=== PATIENT | male | born 1945 | race Caucasian/White ===

== ENCOUNTER 2024-02-20 11:57 | Emergency (ER) | payer MEDICARE, SELFPAY ==
--- NOTE | ~2024-02-20 | XR_ITS ---
EXAMINATION: XR KNEE, LEFT CLINICAL INFORMATION: Swelling. Pain. COMPARISON: None available. TECHNIQUE: Four views of the left knee. FINDINGS: No fracture. Alignment is anatomic. There is a small suprapatellar joint effusion. There is mild narrowing of the medial compartment. There are degenerative changes of the patellofemoral joint. There are dense vascular calcifications. XR/XR knee LT 4V IMPRESSION: No fracture or dislocation. Small effusion. Mild degenerative disease. Extensive vascular calcification.
--- NOTE | ~2024-02-20 | US_ITS ---
EXAMINATION: US VENOUS ULTRASOUND WITH DOPPLER LOWER EXTREMITY, LEFT CLINICAL INFORMATION: Swelling and pain. DVT. COMPARISON: None available. TECHNIQUE: Ultrasound of the deep veins is performed from the hip to the calf with compression sonography and color and pulse Doppler assessment. Spectral analysis with color-flow imaging is performed. FINDINGS: There appears to be some thrombus and poor compression in the femoral vein proximal to distal. This may be chronic. The caliber of the vein is normal or small. Some color flow is noted. The right common femoral vein appears normal as does the left common femoral vein. Poor compression with some color flow still observed in the left popliteal vein likely chronic. Calf veins were not clearly seen. No fluid collections or popliteal cysts. US/US venous duplex LE LT IMPRESSION: Likely extensive chronic DVT noted.
[2024-02-20 12:09] VITALS: BP 123/64; PULSE 74; PULSE 78; RESP 16; O2SAT 95; O2SAT 96; BMI 30.7
--- NOTE | 2024-02-20 13:04 | ED_ITS ---
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 Patient has been at [facility] for acute rehab and doing physical therapy when he noticed is left leg was painful and he had swelling in his left knee and thigh. He states he fell recently, fell onto his bottom. Did not hit his head or injure his knee at that time. 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 Less than 24 hours after discharge he had another witnessed ?syncopal episode at his apartment building, cannot recall if he was dizzy or had chest pain or shortness of breath at that time. He was again brought to [facility] where they ruled out PE and interrogated his pacemaker which did not show any events. He was discharged to [facility] for rehab. He was off of his coumadin for about 1 week for his pacemaker procedure, INR was subtherapeutic at 1.1 on 02/02 at [place]. Denies chest pain or shortness of breath currently. MD complaint: knee injury Onset (ago): day(s) (1) Injury: Left: knee Type of Injury: unknown Place: SNF Relieving factors: rest Exacerbating factors: movement and palpation Context: fall (at least one week ago) Associated symptoms: swelling Other symptoms: none Related Data Previous Rx's ?Medication ?Instructions ?Recorded oxycodone 5 mg tablet 5 mg PO BID PRN severe pain (scale 02/20/24 score 7-10) #4 tabs Allergies Allergy/AdvReac Type Severity Reaction Status Date / Time shellfish derived Allergy Swelling Verified 02/20/24 12:15 Review of Systems 2 Review of Systems: Yes all other systems are reviewed and are negative [facility] Social History Social History Smoked in Last 30 Days: No Use of substances other than those prescribed or required for medical reasons: No Advance Directives: Yes Advance Directives on File: No Physical Exam 2 Vital Signs: Vital Signs: Last Vital Signs Temp 98.5 F 02/20/24 16:40 Pulse 89 02/20/24 16:40 Resp 16 02/20/24 16:40 BP 135/72 02/20/24 16:40 Pulse Ox 93 02/20/24 16:40 O2 Del Method Room Air 02/20/24 16:40 BMI result Body Mass Index 30.7 Appearance: Alert. Oriented X3. No acute distress. Head: normocephalic, atraumatic. Eyes: Pupils equal, round and reactive to light. Neck: Normal inspection. Neck supple. CVS: Normal heart rate and rhythm. Pulses normal. Respiratory: No respiratory distress. Breath sounds normal. Skin: Skin warm and dry. Normal skin color. Normal skin turgor. No rashes. Extremities: No lower extremity edema. Left knee swollen, nonerythematous, no ecchymosis, tender to palpation around entire circumference of knee joint, most tender medial and lateral to patella, neurovascular status intact distally. Neuro/psych: Oriented X 3. No motor deficit. No sensory deficit. CN II-XII grossly intact. Garbled speech, longstanding due to prior stroke. EMS reported that he is at baseline neuro status. 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 On arrival to the ED, patients vital signs were within normal limits, he was not in any acute distress. CBC showed leukocytosis with WBC of 19. Possibly due to DVT but need to rule out infection. Patient is afebrile, not tachycardic. Incision site from pacemaker placement is clean, dry, intact with steri-strip in place, not erythematous, no drainage. Patient denies chest pain or shortness of breath. Will obtain urinalysis. On exam there is unilateral swelling of left knee, no ecchymossis or erythema, ROM is painful, and joint is tender to palpation, especially around the patella. Duplex ultrasound of left leg obtained due to concern for DVT. Ultrasound reviewed, showing chronic DVT in the left leg. This was discussed with Dr. Jimenez from heme/Onc, patient is to continue the Coumadin. No further management at this time. Differential Diagnosis Differential Diagnoses: The differential diagnosis associated with the presentation includes DVT, knee dislocation, soft tissue injury of right knee, septic joint Admission/Observation Consideration of admission/observation: Escalation of care including admission/observation considered Consult Healthcare Provider Management of the patient was discussed with: Stabilizing Machine Operator Dr. Camp Lab Data MDM Lab Attestation statement: I reviewed the patient's lab results. Leukocytosis, supratherapeutic INR 02/20/24 13:57 02/20/24 14:59 Labs: Lab Results 02/20/24 02/20/24 02/20/24 Range/Units 13:57 14:30 14:59 WBC 19.0 H (4.8-10.8) X10*3/uL RBC 5.57 (4.60-5.80) X10*6/uL Hgb 15.5 (14.0-18.0) g/dl Hct 47.2 (42.0-52.0) % MCV 84.7 (80.0-98.0) fL MCH 27.8 (27.0-33.0) pg MCHC 32.8 (31.0-36.0) g/dl RDW 14.8 (11.0-16.0) % Plt Count 346 (160-400) X10*3/uL MPV 9.4 (9.4-12.4) fL Immature Gran % (Auto) 0.6 H (0.0-0.4) % Neut % (Auto) 86.4 H (45-73) % Lymph % (Auto) 4.2 L (20-40) % [place] % (Auto) 7.9 (2-11) % Eos % (Auto) 0.4 (0-4) % Baso % (Auto) 0.5 (0-2) % Lymph # (Auto) 0.8 L (1.2-4.9) X10*3/uL [place] # (Auto) 1.5 H (0.1-1.2) X10*3/uL Eos # (Auto) 0.1 (0.0-0.4) X10*3/uL Baso # (Auto) 0.1 (0.0-0.2) X10*3/uL Abs Immat Gran (auto) 0.12 H (0.00-0.03) X10*3/uL Absolute Neuts (auto) 16.4 H (2.0-8.3) x10*3/uL Absolute Nucleated RBC 0.000 (0.0-0.012) X10*3/uL Nucleated RBC % (auto) 0.0 (0.0-0.2) /100WBC PT 41.6 H (11.1-13.3) SEC INR 3.4 H (0.9-1.1) APTT 41.6 H (26.0-36.8) SEC Sodium 137 (135-145) mmol/L Potassium 4.3 (3.3-5.1) mmol/L Chloride 103 (96-108) mmol/L Carbon Dioxide 25 (22-29) mmol/L Anion Gap 13 (12-20) BUN 24 H (9-16) mg/dL Creatinine 1.05 (0.5-1.4) mg/dL Estim Creat Clear Calc 64.6 Estimated GFR > 60 Random Glucose 93 (60-115) mg/dL Calcium 10.1 (8.4-10.2) mg/dL Magnesium 2.1 (1.6-2.6) mg/dL Total Bilirubin 0.5 (0.0-1.0) mg/dL Direct Bilirubin 0.2 (0.0-0.5) mg/dL AST 23 (5-37) U/L ALT 31 (0-40) U/L Alkaline Phosphatase 72 (39-117) U/L Total Protein 8.3 H (6.5-8.0) g/dL Albumin 4.1 (3.5-5.0) g/dL Urine Color Urine Appearance Urine pH (5.0-9.0) Ur Specific [place] (1.005-1.025) Urine Protein (Neg-Trace) mg/dL Urine Glucose (UA) (Negative) mg/dL Urine Ketones (Negative) mg/dL Urine Blood (Negative) Urine Nitrite (Negative) Ur Leukocyte Esterase (Negative) 02/20/24 Range/Units 15:50 WBC (4.8-10.8) X10*3/uL RBC (4.60-5.80) X10*6/uL Hgb (14.0-18.0) g/dl Hct (42.0-52.0) % MCV (80.0-98.0) fL MCH (27.0-33.0) pg MCHC (31.0-36.0) g/dl RDW (11.0-16.0) % Plt Count (160-400) X10*3/uL MPV (9.4-12.4) fL Immature Gran % (Auto) (0.0-0.4) % Neut % (Auto) (45-73) % Lymph % (Auto) (20-40) % [place] % (Auto) (2-11) % Eos % (Auto) (0-4) % Baso % (Auto) (0-2) % Lymph # (Auto) (1.2-4.9) X10*3/uL [place] # (Auto) (0.1-1.2) X10*3/uL Eos # (Auto) (0.0-0.4) X10*3/uL Baso # (Auto) (0.0-0.2) X10*3/uL Abs Immat Gran (auto) (0.00-0.03) X10*3/uL Absolute Neuts (auto) (2.0-8.3) x10*3/uL Absolute Nucleated RBC (0.0-0.012) X10*3/uL Nucleated RBC % (auto) (0.0-0.2) /100WBC PT (11.1-13.3) SEC INR (0.9-1.1) APTT (26.0-36.8) SEC Sodium (135-145) mmol/L Potassium (3.3-5.1) mmol/L Chloride (96-108) mmol/L Carbon Dioxide (22-29) mmol/L Anion Gap (12-20) BUN (9-16) mg/dL Creatinine (0.5-1.4) mg/dL Estim Creat Clear Calc Estimated GFR Random Glucose (60-115) mg/dL Calcium (8.4-10.2) mg/dL Magnesium (1.6-2.6) mg/dL Total Bilirubin (0.0-1.0) mg/dL Direct Bilirubin (0.0-0.5) mg/dL AST (5-37) U/L ALT (0-40) U/L Alkaline Phosphatase (39-117) U/L Total Protein (6.5-8.0) g/dL Albumin (3.5-5.0) g/dL Urine Color Yellow Urine Appearance Clear Urine pH 6.0 (5.0-9.0) Ur Specific [place] 1.020 (1.005-1.025) Urine Protein Trace (Neg-Trace) mg/dL Urine Glucose (UA) Negative (Negative) mg/dL Urine Ketones Trace (Negative) mg/dL Urine Blood Moderate (2+) H (Negative) Urine Nitrite Negative (Negative) Ur Leukocyte Esterase Small (1+) H (Negative) Independent Interpretation I performed an independent interpretation of an: Plain X-Ray and Ultrasound Interpretation: xr knee without acute fx or dislocation extensive clot on u/s agree w/ radiology read Radiology Impression Discussion of test interpretation with radiology: I have reviewed the radiologist's reading. Radiologist Impression: EXAMINATION: XR KNEE, LEFT CLINICAL INFORMATION: Swelling. Pain. COMPARISON: None available. TECHNIQUE: Four views of the left knee. FINDINGS: No fracture. Alignment is anatomic. There is a small suprapatellar joint effusion. There is mild narrowing of the medial compartment. There are degenerative changes of the patellofemoral joint. There are dense vascular calcifications. XR/XR knee LT 4V IMPRESSION: No fracture or dislocation. Small effusion. Mild degenerative disease. Extensive vascular calcification. EXAMINATION: US VENOUS ULTRASOUND WITH DOPPLER LOWER EXTREMITY, LEFT CLINICAL INFORMATION: Swelling and pain. DVT. COMPARISON: None available. TECHNIQUE: Ultrasound of the deep veins is performed from the hip to the calf with compression sonography and color and pulse Doppler assessment. Spectral analysis with color-flow imaging is performed. FINDINGS: There appears to be some thrombus and poor compression in the femoral vein proximal to distal. This may be chronic. The caliber of the vein is normal or small. Some color flow is noted. The right common femoral vein appears normal as does the left common femoral vein. Poor compression with some color flow still observed in the left popliteal vein likely chronic. Calf veins were not clearly seen. No fluid collections or popliteal cysts. US/US venous duplex LE LT IMPRESSION: Likely extensive chronic DVT noted. Independent Historian Clinical information obtained from an independent historian. History obtained from or confirmed by: EMS External Record Review External record reviewed: Office record, Outpatient record, Prior outpatient labs, Prior outpatient radiology, Primary care record and Outside ED record Records reviewed from [facility] Prescription Management I considered prescription management with: Pain Medication and Antibiotic Chronic Conditions Patient?s care impacted by: Other (cva, protein c ) Discharge Plan Discharge Clinical Impression: Chronic deep vein thrombosis (DVT) Qualifiers: DVT location: lower extremity Affected thrombotic vein of extremity: u nspecified vein of extremity Laterality: left Qualified Code(s): I82.502 - Chronic embolism and thrombosis of unspecified deep veins of left lower extremity Leukocytosis Qualifiers: Leukocytosis type: unspecified Qualified Code(s): D72.829 - Elevated white blood cell count, unspecified Patient Disposition: Still a Patient Instructions: Deep Vein Thrombosis (ED) Additional Instructions: Your INR today was 3.4. Continue your Coumadin. Your white blood cell count today was 19,000. There was no evidence of infection and your vital signs were normal. Your pacemaker site does not look infected Recommend repeating your blood count tomorrow to ensure improving white blood cell counts. If you develop new or worsening symptoms call 911 or come back to the ER for further evaluation. EXAMINATION: US VENOUS ULTRASOUND WITH DOPPLER LOWER EXTREMITY, LEFT CLINICAL INFORMATION: Swelling and pain. DVT. COMPARISON: None available. TECHNIQUE: Ultrasound of the deep veins is performed from the hip to the calf with compression sonography and color and pulse Doppler assessment. Spectral analysis with color-flow imaging is performed. FINDINGS: There appears to be some thrombus and poor compression in the femoral vein proximal to distal. This may be chronic. The caliber of the vein is normal or small. Some color flow is noted. The right common femoral vein appears normal as does the left common femoral vein. Poor compression with some color flow still observed in the left popliteal vein likely chronic. Calf veins were not clearly seen. No fluid collections or popliteal cysts. US/US venous duplex LE LT IMPRESSION: Likely extensive chronic DVT noted. Prescriptions: New oxycodone 5 mg tablet 5 mg PO BID PRN (Reason: severe pain (scale score 7-10)) Qty: 4 0RF Rx Instructions: Partial Fill upon patient request. Referrals: [facility] [facility] Orthopedic Surgeons [Provider Group] (XR/XR knee LT 4V IMPRESSION: No fracture or dislocation. Small effusion. Mild degenerative disease. Extensive vascular calcification) Smith Ramon MD [Primary Care Provider] - Print Language: Latvian
[2024-02-20 14:00] LABS: MANUAL DIFF FLAG NO
[2024-02-20 14:05] LABS: Basophils Absolute Auto 0.1 X10*3/uL (0.0-0.2); Basophils Percent Auto 0.5 % (0-2); Eosinophils Absolute Auto 0.1 X10*3/uL (0.0-0.4); Eosinophils Percent Auto 0.4 % (0-4); Hematocrit 47.2 % (42.0-52.0); Hemoglobin 15.5 g/dl (14.0-18.0); Imm Gran Abs Auto 0.12 X10*3/uL (0.00-0.03); Imm Gran Pct Auto 0.6 % (0.0-0.4); Lymphocytes Absolute Auto 0.8 X10*3/uL (1.2-4.9); Lymphocytes Percent Auto 4.2 % (20-40); Mean Corpuscular HGB Conc 32.8 g/dl (31.0-36.0); Mean Corpuscular Hemoglobin 27.8 pg (27.0-33.0); Mean Corpuscular Volume 84.7 fL (80.0-98.0); Mean Platelet Volume 9.4 fL (9.4-12.4); Monocytes Absolute Auto 1.5 X10*3/uL (0.1-1.2); Monocytes Percent Auto 7.9 % (2-11); Neutrophils Absolute Auto 16.4 x10*3/uL (2.0-8.3); Neutrophils Percent Auto 86.4 % (45-73); Platelet Count 346 X10*3/uL (160-400); Red Blood Count 5.57 X10*6/uL (4.60-5.80); Red Cell Distribution Width 14.8 % (11.0-16.0)
[2024-02-20 14:08] VITALS: BP 127/68; PULSE 79; RESP 20; TEMP 36.6; O2SAT 93
[2024-02-20 14:45] LABS: INTERNATIONAL NORM RATIO 3.4 (0.9-1.1); Prothrombin Time 41.6 SEC (11.1-13.3)
[2024-02-20 14:48] LABS: Partial Thromboplastin Time 41.6 SEC (26.0-36.8)
[2024-02-20 15:25] LABS: Alanine Aminotransferase 31 U/L (0-40); Albumin Level 4.1 g/dL (3.5-5.0); Alkaline Phosphatase 72 U/L (39-117); Anion Gap 13 (12-20); Aspartate Amino Transferase 23 U/L (5-37); Bilirubin Direct 0.2 mg/dL (0.0-0.5); Bilirubin Total 0.5 mg/dL (0.0-1.0); Blood Urea Nitrogen 24 mg/dL (9-16); Calcium 10.1 mg/dL (8.4-10.2); Carbon Dioxide 25 mmol/L (22-29); Chloride 103 mmol/L (96-108); Creatinine Clr Calc Pharmacy 64.6; Estimated Glomerular Filt Rate > 60; Glucose Random 93 mg/dL (60-115); Magnesium 2.1 mg/dL (1.6-2.6); Potassium 4.3 mmol/L (3.3-5.1); Sodium 137 mmol/L (135-145); Total Protein 8.3 g/dL (6.5-8.0)
[2024-02-20 16:06] LABS: Appearance Urine Clear; Color Urine Yellow; Glucose Urine UA Negative (Negative); Leukocyte Esterase Urine Small (1+) (Negative); Nitrite Urine Negative (Negative); UMIC TRIGGER UACC YES; Urine Blood Moderate (2+) (Negative); Urine Ketones Trace mg/dL (Negative); Urine Protein Trace mg/dL (Neg-Trace)
[2024-02-20] MEDS: oxyCODONE HCl Immed Release 5 MG TABLET PO (16:23)
[2024-02-20 16:40] VITALS: BP 135/72; PULSE 89; RESP 16; TEMP 36.9; O2SAT 93
[2024-02-20 17:06] LABS: Basophils Absolute Auto 0.1 X10*3/uL (0.0-0.2); Basophils Percent Auto 0.4 % (0-2); Eosinophils Absolute Auto 0.1 X10*3/uL (0.0-0.4); Eosinophils Percent Auto 0.4 % (0-4); Hematocrit 45.1 % (42.0-52.0); Hemoglobin 15.1 g/dl (14.0-18.0); Imm Gran Abs Auto 0.09 X10*3/uL (0.00-0.03); Imm Gran Pct Auto 0.6 % (0.0-0.4); Lymphocytes Absolute Auto 1.3 X10*3/uL (1.2-4.9); Lymphocytes Percent Auto 8.2 % (20-40); Mean Corpuscular HGB Conc 33.5 g/dl (31.0-36.0); Mean Corpuscular Hemoglobin 28.1 pg (27.0-33.0); Mean Platelet Volume 9.2 fL (9.4-12.4); Monocytes Absolute Auto 1.4 X10*3/uL (0.1-1.2); Monocytes Percent Auto 8.4 % (2-11); Neutrophils Absolute Auto 13.3 x10*3/uL (2.0-8.3); Platelet Count 278 X10*3/uL (160-400); Red Blood Count 5.37 X10*6/uL (4.60-5.80); Red Cell Distribution Width 14.9 % (11.0-16.0); White Blood Count 16.2 X10*3/uL (4.8-10.8)
[2024-02-20 17:07] LABS: MANUAL DIFF FLAG NO
--- NOTE | 2024-02-20 17:43 | PC.NURSE ---
report given to Donovan garcia. pt awaiting transport back to SNF by EMS
[2024-02-20 20:08] VITALS: BP 124/74; PULSE 79; RESP 16; TEMP 36.8; O2SAT 93
[2024-02-20 21:04] VITALS: BP 124/74; PULSE 79; RESP 16; TEMP 36.8; O2SAT 93
[2024-02-20 21:18] LABS: Bacteria Urine None Seen (None Seen); Hyaline Casts Urine 0-2 /LPF (0-2); RBC Urine >20 /HPF (0-2); Squamous Epithelial Cell Urine 0-2 /HPF (0-2); UACC Culture Trigger YES
== END 2024-02-20 21:05 | disposition home or self-care (01) ==
PROVIDERS: Physician Assistant; Emergency Provider Emergency Medicine; PCP Family Medicine Geriatric Medicine
DX: I82.502 Chronic embolism and thrombosis of unspecified deep veins of left lower extremity (principal); D72.829 Elevated white blood cell count, unspecified; I10 Essential (primary) hypertension; Z86.73 Personal history of transient ischemic attack (TIA), and cerebral infarction without residual deficits; Z79.01 Long term (current) use of anticoagulants; Z95.0 Presence of cardiac pacemaker
CPT/HCPCS: 36415; 73564; 80048; 80076; 81001; 83735; 85025; 85610; 85730; 87086; 93971; 99284

== ENCOUNTER 2024-02-25 11:36 | Emergency (ER) | payer MEDICARE, SELFPAY ==
--- NOTE | 2024-02-25 | ECG_ITS ---
Test Reason : FALL Blood Pressure : / mmHG Vent. Rate : 080 BPM Atrial Rate : 080 BPM P-R Int : 172 ms QRS Dur : 180 ms QT Int : 440 ms P-R-T Axes : -26 -87 067 degrees QTc Int : 507 ms Atrial-sensed ventricular-paced rhythm Abnormal ECG No previous ECGs available Referred By: Generic ED Physician Electronically Signed By:Marvin Kulkarni
[2024-02-25 11:48] VITALS: BP 122/88; BP 124/65; PULSE 75; PULSE 81; RESP 16; TEMP 36.4; O2SAT 86; O2SAT 91; BMI 30.1
[2024-02-25 12:23] VITALS: BP 131/69; PULSE 79; RESP 18; TEMP 36.6; O2SAT 91
[2024-02-25 12:26] VITALS: BP 131/69; PULSE 75; RESP 18; O2SAT 87; O2SAT 92
--- NOTE | 2024-02-25 12:27 | PC.NURSE ---
pt noted to be at 87% on RA - pt placed on 2L via NC - now resting at 92%. no sob/wob noted. pt positioned upright to promote patent airway. respirations even/unlabored. lungs CTA. labs obtained/sent to lab by tech. pt waiting to be seen by ED provider. plan of care ongoing.
[2024-02-25 12:32] LABS: MANUAL DIFF FLAG NO
[2024-02-25 12:33] LABS: Basophils Absolute Auto 0.1 X10*3/uL (0.0-0.2); Basophils Percent Auto 0.5 % (0-2); Eosinophils Absolute Auto 0.2 X10*3/uL (0.0-0.4); Eosinophils Percent Auto 1.3 % (0-4); Hematocrit 40.4 % (42.0-52.0); Hemoglobin 13.7 g/dl (14.0-18.0); Imm Gran Abs Auto 0.06 X10*3/uL (0.00-0.03); Imm Gran Pct Auto 0.5 % (0.0-0.4); Lymphocytes Absolute Auto 0.9 X10*3/uL (1.2-4.9); Lymphocytes Percent Auto 7.2 % (20-40); Mean Corpuscular HGB Conc 33.9 g/dl (31.0-36.0); Mean Corpuscular Hemoglobin 28.2 pg (27.0-33.0); Mean Corpuscular Volume 83.1 fL (80.0-98.0); Monocytes Absolute Auto 0.9 X10*3/uL (0.1-1.2); Monocytes Percent Auto 7.7 % (2-11); Neutrophils Absolute Auto 9.7 x10*3/uL (2.0-8.3); Neutrophils Percent Auto 82.8 % (45-73); Platelet Count 316 X10*3/uL (160-400); Red Blood Count 4.86 X10*6/uL (4.60-5.80); Red Cell Distribution Width 14.5 % (11.0-16.0); White Blood Count 11.8 X10*3/uL (4.8-10.8)
[2024-02-25 12:40] LABS: INTERNATIONAL NORM RATIO 3.3 (0.9-1.1); Prothrombin Time 40.6 SEC (11.1-13.3)
[2024-02-25 12:43] LABS: Partial Thromboplastin Time 38.7 SEC (26.0-36.8)
[2024-02-25 12:54] LABS: Alanine Aminotransferase 32 U/L (0-40); Albumin Level 3.5 g/dL (3.5-5.0); Alkaline Phosphatase 68 U/L (39-117); Anion Gap 12 (12-20); Aspartate Amino Transferase 23 U/L (5-37); Bilirubin Total 0.4 mg/dL (0.0-1.0); Blood Urea Nitrogen 17 mg/dL (9-16); Calcium 9.6 mg/dL (8.4-10.2); Carbon Dioxide 25 mmol/L (22-29); Chloride 105 mmol/L (96-108); Creatinine Clr Calc Pharmacy 66.6; Estimated Glomerular Filt Rate > 60; Glucose Random 103 mg/dL (60-115); Potassium 4.1 mmol/L (3.3-5.1); Sodium 138 mmol/L (135-145); Total Protein 7.5 g/dL (6.5-8.0)
[2024-02-25 13:00] LABS: B Type Natriuretic Peptide 29 pg/mL (<100)
--- NOTE | 2024-02-25 13:42 | ED.FALL ---
HPI - Fall General Chief Complaint: Fall Stated Complaint: SLIP OOW/C,SAT 88% RA,+THINNERS FROM SNF PER EMS Time Seen by Provider: 02/25/24 13:08 Source: patient and EMS Mode of arrival: EMS Limitations: no limitations History of Present Illness HPI Narrative: Patient has a history of prior cerebellar stroke. he states that he needed to have a BM and could not get help so when he went to get out of bed he fell as he is always off balance. he did not hit his head, nothing hurts Fall from: out of bed Related Data Previous Rx's ?Medication ?Instructions ?Recorded oxycodone 5 mg tablet 5 mg PO BID PRN severe pain (scale 02/20/24 score 7-10) #4 tabs Allergies Allergy/AdvReac Type Severity Reaction Status Date / Time shellfish derived Allergy Swelling Verified 02/25/24 11:53 Review of Systems Review of Systems: Yes all other systems are reviewed and are negative Neurologic: Denies Sensory deficit (Neuro) [facility] Social History Social History Advance Directives: Yes Advance Directives Information Provided: No Advance Directives on File: No Physical Exam Vital Signs: Vital Signs: Last Vital Signs Temp 97.9 F 02/25/24 12:23 Pulse 75 02/25/24 12:26 Resp 18 02/25/24 12:26 BP 131/69 02/25/24 12:26 Pulse Ox 92 02/25/24 12:26 O2 Del Method Nasal Cannula 02/25/24 12:26 O2 Flow Rate 2 02/25/24 12:26 BMI result Body Mass Index 30.1 Const: Other: patient with some aphasia Nutritional Appearance: obese Orientation/consciousness: oriented to person and patient oriented x3 Limitations: no limitations HEENT: Head: Yes normal to inspection Ears: external ears normal General nose exam: Normal external nose present Mouth: Normal oral and palatal mucosa present and oropharynx normal Throat: Yes posterior oropharynx normal Eyes: General: appearance normal, both eyes and all related structures Neck: Other: supple Neck: Yes normal visual inspection Chest: Chest palpation & inspection: normal inspection of the chest Resp: Auscultation: clear to auscultation bilaterally Cardio: Jugular venous distension: no JVD Rate: regular rate Rhythm: regular rhythm Heart sounds: S1 normal heart sound present and S2 normal heart sound present GI: Inspection: Yes normal to inspection Palpation (GI): Soft to palpation, nontender and No hepatosplenomegaly present Auscultation: normal bowel sounds : General: Yes no CVA tenderness Back/Spine/Pelvis: Back: no CVA tenderness Skin: General skin exam: no rashes or lesions noted Neuro: General: oriented to person and patient oriented x3 Cranial nerves: Yes CN's II-XII intact bilaterally Motor exam (neuro): 5/5 motor strength present throughout Sensory Exam: No Sensory deficit (Neuro) Extrem: General: Yes normal to inspection Psych: Appearance: grossly normal Course Reevaluation(s) Reevaluation #1: no evidence of injury will dc home Time: 14:18 Medical Decision Making Differential Diagnosis Differential Diagnoses: The differential diagnosis associated with the presentation includes (Head trauma, over anticoagulation, extremity injury) Admission/Observation Consideration of admission/observation: Escalation of care including admission/observation considered (upon arrival admission was considered) Lab Data 02/25/24 12:25 02/25/24 12:25 Labs: Lab Results 02/25/24 Range/Units 12:25 WBC 11.8 H (4.8-10.8) X10*3/uL RBC 4.86 (4.60-5.80) X10*6/uL Hgb 13.7 L (14.0-18.0) g/dl Hct 40.4 L (42.0-52.0) % MCV 83.1 (80.0-98.0) fL MCH 28.2 (27.0-33.0) pg MCHC 33.9 (31.0-36.0) g/dl RDW 14.5 (11.0-16.0) % Plt Count 316 (160-400) X10*3/uL MPV 9.0 L (9.4-12.4) fL Immature Gran % (Auto) 0.5 H (0.0-0.4) % Neut % (Auto) 82.8 H (45-73) % Lymph % (Auto) 7.2 L (20-40) % [place] % (Auto) 7.7 (2-11) % Eos % (Auto) 1.3 (0-4) % Baso % (Auto) 0.5 (0-2) % Lymph # (Auto) 0.9 L (1.2-4.9) X10*3/uL [place] # (Auto) 0.9 (0.1-1.2) X10*3/uL Eos # (Auto) 0.2 (0.0-0.4) X10*3/uL Baso # (Auto) 0.1 (0.0-0.2) X10*3/uL Abs Immat Gran (auto) 0.06 H (0.00-0.03) X10*3/uL Absolute Neuts (auto) 9.7 H (2.0-8.3) x10*3/uL Absolute Nucleated RBC 0.000 (0.0-0.012) X10*3/uL Nucleated RBC % (auto) 0.0 (0.0-0.2) /100WBC PT 40.6 H (11.1-13.3) SEC INR 3.3 H (0.9-1.1) APTT 38.7 H (26.0-36.8) SEC Sodium 138 (135-145) mmol/L Potassium 4.1 (3.3-5.1) mmol/L Chloride 105 (96-108) mmol/L Carbon Dioxide 25 (22-29) mmol/L Anion Gap 12 (12-20) BUN 17 H (9-16) mg/dL Creatinine 1.01 (0.5-1.4) mg/dL Estim Creat Clear Calc 66.6 Estimated GFR > 60 Random Glucose 103 (60-115) mg/dL Calcium 9.6 (8.4-10.2) mg/dL Total Bilirubin 0.4 (0.0-1.0) mg/dL AST 23 (5-37) U/L ALT 32 (0-40) U/L Alkaline Phosphatase 68 (39-117) U/L B-Natriuretic Peptide 29 (<100) pg/mL Total Protein 7.5 (6.5-8.0) g/dL Albumin 3.5 (3.5-5.0) g/dL Independent Interpretation I performed an independent interpretation of an: EKG (sinus with ventricular pacing) Independent Historian Clinical information obtained from an independent historian. History obtained from or confirmed by: EMS Tests considered The following testing was considered but not selected: CT of head considered as patient is on coumadin but he states clearly that he never hit his head Chronic Conditions Patient?s care impacted by: Other (stroke) Discharge Plan Discharge Clinical Impression: Balance problem Patient Disposition: Home, Self-Care Prescriptions: No Action oxycodone 5 mg tablet 5 mg PO BID PRN (Reason: severe pain (scale score 7-10)) Qty: 4 0RF Rx Instructions: Partial Fill upon patient request. Referrals: Smith Ramon MD [Primary Care Provider] - 5 days Print Language: Frisian
--- NOTE | 2024-02-25 14:42 | PC.NURSE ---
pt seen by ED provider/medically cleared. laboratory secretary notified that pt is ready to be transported back to facility. ETA unknown at this time - will update pt angie available.
[2024-02-25 15:23] VITALS: BP 103/66; PULSE 82; RESP 17; TEMP 36.2; O2SAT 92
== END 2024-02-25 17:36 | disposition skilled nursing facility (03) ==
PROVIDERS: Emergency Provider Emergency Medicine; PCP Family Medicine Geriatric Medicine
DX: R26.89 Other abnormalities of gait and mobility (principal); R29.6 Repeated falls; Z86.73 Personal history of transient ischemic attack (TIA), and cerebral infarction without residual deficits; R47.01 Aphasia; Z79.01 Long term (current) use of anticoagulants
CPT/HCPCS: 36415; 80053; 83880; 85025; 85610; 85730; 93005; 99283; 99284

== ENCOUNTER → 2024-02-25 12:29 | Outpatient (BNV) | payer MEDICARE, SELFPAY | PROVIDERS: Emergency Provider Emergency Medicine; PCP Family Medicine Geriatric Medicine; Visit Provider Internal Medicine Cardiovascular Disease | DX: R94.31 Abnormal electrocardiogram [ECG] [EKG] (principal) | CPT/HCPCS: 93010 ==